=== PATIENT | male | born 1995 | race Caucasian/White ===

== ENCOUNTER → 2017-07-18 | Day surgery (SDC) | payer OTHER ==
[~2017-07-18] MED LIST: BUPIVACAINE HCL PF 0.75% 30 ML VIAL ONE; EPINEPHrine HCL (1:1000) 30 MG/30 ML VIAL ONE; LACTATED RINGER'S 1000 ML INJ 1,000 ML ONE; LIDOCAINE 1.5%/EPINEPHrine 1:200,000 PF SOLN 30 ML AMP ONE; MIDAZOLAM HCL 5 MG/ML VIAL (1 ML) ONE; ONDANSETRON HCL 4 MG/2 ML VIAL IV PUSH ONE; PROPOFOL 500 MG/50 ML BTL IV ONE; TRAM100T19 PO; ceFAZolin INJ 1,000 MG VIAL ONE; oxyCODONE/ACETAMINOPHEN 5 MG/325 MG TAB ONE
--- NOTE | 2017-07-20 14:11 | MP ---
cc: JAIMIE GARCIA M.D. 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 PROCEDURE: 1. Right shoulder arthroscopic Bankart repair using Arthrex suture tack x4. 2. Right shoulder arthroscopic superior labral repair using Arthrex super suture tack x2. ANESTHETIC: Interscalene block and general SURGEON Jaimie Garcia MD SENIOR ENLISTED ADVISOR SURGEON Vinnie GO. ESTIMATED BLOOD LOSS: Minimum. COMPLICATIONS: None known. INDICATIONS FOR PROCEDURE: Gus Martell is a 21-year-old male with recurrent instability the right shoulder. He has failed conservative management is indicated for surgical intervention. MRI shows significant findings about the anterior labrum. The superior labrum and posteriorly Hill-Sachs lesion. Risks, benefits thoroughly discussed. No guarantees were offered. There may be some bony deficit anterior inferior but he does not appear to need an open technique at this time the recommendation is a test the arthroscopic technique and make a decision on the superior labrum and the timing time of surgery. Risks, benefits were thoroughly discussed in detail informed consent was obtained. The media assistant Vinnie Cherry is an advanced registered nurse practitioner his skill set was medically necessary for the performance of both these procedures. PROCEDURE The patient brought the operating room. He had been given interscalene block in the preop holding areas placed under general anesthetic in the lateral decubitus position right shoulder up the right shoulder prepped and draped in usual sterile fashion. IV antibiotics were given. Time-out was completed we used a three portal technique one portal posteriorly and soft spot two portals anteriorly in the rotator interval. We used an cannulas anteriorly first photograph shows a large posterior Hill-Sachs lesion and region of both tubes centimeters x 2 cm approximately. The second photograph shows superior labral tear with a edge fraying and with probing this we found it to lift off and it was clearly a type 2 that involved the root of the biceps tendon. The third photograph shows the superior Bankart lesion, the fourth photograph shows looking upwards underneath the Bankart lesion then we switched over to 70 degrees scope and we visualized looking down on the Bankart lesion. At this point we placed a cannulas anteriorly we elevated the Bankart lesion off of the bone and we brought this down to bleeding bone all the way down around the corner the 6 o'clock position and then we proceeded with one anchor at time with placement of the anchors. The first anchor at 5 o'clock position and then we passed one limb more inferiorly so that when we brought this up it made a bumper effect bringing the labrum on to good bleeding bone and we repeated this procedure for a total of four anchors and we took follow-up photograph here and we proceeded with our slap lesion repair with two anchors, one anterior, one posterior to the biceps tendon and we placed the anchors and passed the sutures and then independently tied them down, then repeat probing found this to be very stable. Then we switched back over to 30 degrees scope for this portion of the operation and then we switched to visualize from the superior portal and looking down on the glenoid. It did look like the shape at change somewhat to an inverted pair and that there probably was about 15% bone loss inferior medial. We did do a gentle chondroplasty on unstable fibers on the posterior aspect the humeral head and some gentle, shaving of some mild posterior labral fraying. Final photographs were taken and arthroscopic equipment were removed. Close with absorbable sutures. Steri-Strips applied. Sterile dressing applied. The patient was awoken return recovery room in stable condition. MD JONO Mg/miguel /12:25 PM /1:57 PM
== END | disposition home or self-care (01) ==
LOC: ESDC 07:41
PROVIDERS: ATTEND Orthopaedic Surgery Sports Medicine
DX: M24.411 Recurrent dislocation, right shoulder (principal); S43.431A Superior glenoid labrum lesion of right shoulder, initial encounter
CPT/HCPCS: 01630; 01991; 29806; 29807; 64417; C1713; J0171; J0690; J2250; J2405; J7120